=== PATIENT | male | born 1980 | race Caucasian/White ===

== ENCOUNTER 2023-11-17 23:04 | Emergency (ER) | payer OTHER ==
[~2023-11-17] VITALS: Ht 170.2 cm; Wt 104.3 kg
[2023-11-17 23:13] VITALS: BP 118/57; PULSE 92; RESP 16; TEMP 97.2; O2SAT 98
[2023-11-17 23:34] VITALS: O2SAT 98
[2023-11-18 00:42] LABS: BASOPHILS # (AUTO) 0.2 K/uL (0.00-0.22); BASOPHILS % (AUTO) 2.6 % (0.0-2.0); EOSINOPHILS # (AUTO) 0.2 K/uL (0-0.4); EOSINOPHILS % (AUTO) 2.1 % (0.0-4.0); HEMATOCRIT 46.1 % (36-52); HEMOGLOBIN 15.6 g/dL (12.0-18.0); LYMPHOCYTES # (AUTO) 2.4 K/uL (2.0-11.5); LYMPHOCYTES % (AUTO) 30.9 % (20.5-51.1); MEAN CORPUSCULAR HEMOGLOBIN 33 pg (27-31); MEAN CORPUSCULAR HGB CONC 34 g/dL (33-37); MEAN CORPUSCULAR VOLUME 97.2 fL (80-94); MONOCYTES # (AUTO) 0.4 K/uL (0.8-1.0); NEUTROPHILS # (AUTO) 4.5 K/uL (1.8-7.7); NEUTROPHILS % (AUTO) 59.4 % (42.2-75.2); PLATELET COUNT (AUTO) 314 K/uL (140-450); RED BLOOD CELL COUNT(AUTO) 4.74 MIL/uL (4.20-6.10); RED CELL DISTRIBUTION WIDTH 13.4 % (11.6-13.7); WHITE BLOOD COUNT (AUTO) 7.6 K/uL (4.8-10.8)
[2023-11-18 00:54] LABS: ANION GAP 13.1 (8-16); CALCIUM 8.3 mg/dL (8.5-10.1); CREATININE 0.8 mg/dL (0.6-1.3); POTASSIUM 4.1 mmol/L (3.5-5.1)
[2023-11-18] MEDS: LORazepam 2 MG/ML VIAL IM ONE (00:58)
[2023-11-18] MEDS: diphenhydrAMINE 50 MG/ML VIAL IM ONE (00:59)
[2023-11-18] MEDS: HALOPERIDOL IM 5 MG/ML VIAL IM ONE (00:59)
[2023-11-18 01:02] LABS: ALANINE AMINOTRANSFERASE 141 U/L (12-78); ALBUMIN 3.2 g/dL (3.4-5.0); ALCOHOL, BLOOD 362 mg/dL (<10); ALKALINE PHOSPHATASE 76 U/L (50-136); ASPARTATE AMINOTRANSFERASE 135 U/L (15-37); BILIRUBIN,DIRECT 0.2 mg/dL (0.0-0.3); TOTAL BILIRUBIN 0.9 mg/dL (0.0-1.0); TOTAL PROTEIN, SERUM 6.8 g/dL (6.4-8.2)
[2023-11-18 02:36] VITALS: O2SAT 98
[2023-11-18 06:02] VITALS: O2SAT 98
[2023-11-18 08:45] VITALS: BP 106/73; PULSE 82; RESP 20; TEMP 97.7; O2SAT 99
== END 2023-11-18 08:45 | disposition home or self-care (01) ==
LOC: MED 23:04
DX: F10.129 Alcohol abuse with intoxication, unspecified (principal); R07.9 Chest pain, unspecified; E11.9 Type 2 diabetes mellitus without complications; Y90.8 Blood alcohol level of 240 mg/100 ml or more
CPT/HCPCS: 36415; 71045; 80048; 80076; 83880; 84484; 85025; 85379; 93005; 96372; 99285; G0482; J1200; J1630; J2060; Q0092